=== PATIENT | female | born 1945 | race Caucasian/White ===

== ENCOUNTER 2020-10-15 11:50 | Inpatient (IN) ==
[2020-10-15] MEDS ORDERED: Isovue-370 500 ML BOTTLE IVP ONE (12:05)
[2020-10-15] MEDS ORDERED: 0.9 % Sodium Chloride 1,000 ML IVC ONE (12:10)
[2020-10-15 12:21] LABS: Hematocrit 38.1 % (35.3-44.9); Hemoglobin 11.9 g/dL (11.5-15.4); Mean Corpuscular HGB Conc 31.2 g/dL (31.6-35.5); Mean Corpuscular Hemoglobin 28.6 pg (28.0-33.3); Mean Corpuscular Volume 91.6 fL (83.0-100.0); Mean Platelet Volume 10.7 fL (9.4-12.4); Platelet Count 274 K/mcL (140-400); Red Blood Count 4.16 M/mcL (3.82-4.97); Red Cell Distribution Width 13.5 % (11.5-14.5); White Blood Count 13.7 K/mcL (4.3-11.1)
[2020-10-15 12:30] LABS: INR 2.1; Prothrombin Time 24.3 Seconds (9.4-12.1)
[2020-10-15 12:32] LABS: Activated Partial Thrombo Time 45.4 Seconds (26.0-36.0)
[2020-10-15 13:03] LABS: Calcium 9.5 mg/dL (8.6-10.3); Potassium 3.9 mEq/L (3.5-5.1); Troponin I 0.03 ng/mL (< 0.04)
[2020-10-15] MEDS ORDERED: *HR* Dextrose 50 % in Water (Vial) 50 ML VIAL ONE (13:06)
[2020-10-15] MEDS ORDERED: *HR* Dextrose 50 % in Water (Vial) 50 ML VIAL IVP ONE (13:14)
[2020-10-15] MEDS ORDERED: D10% in Water 500 ML IVC SCH (13:15)
[2020-10-15] MEDS ORDERED: D10% in Water 500 ML ONE (13:22)
[2020-10-15] MEDS ORDERED: Naloxone 0.4 MG/ML INJ IVP PRN (15:29)
[2020-10-15] MEDS ORDERED: Melatonin 3 MG TABLET PO PRN (15:35)
[2020-10-15] MEDS ORDERED: Mag Hydrox/Al Hydrox/Simeth 30 ML UDC PO PRN (15:35)
[2020-10-15] MEDS ORDERED: Ondansetron ODT 4 MG TAB.RAPDIS SL PRN (15:35)
[2020-10-15] MEDS ORDERED: D5% in 0.9% NACL 1,000 ML IVC SCH (15:45)
[2020-10-15] MEDS ORDERED: *HR* OxyCODONE/APAP 10/325 TABLET PO PRN (16:07)
[2020-10-15] MEDS ORDERED: *HR* LORazepam 1 MG TABLET PO PRN (16:07)
[2020-10-15] MEDS ORDERED: *HR* Rivaroxaban 10 MG TABLET PO SCH (17:00)
[2020-10-15] MEDS: D10% in Water 500 ML IVC SCH ×3 (17:01→23:09)
[2020-10-15] MEDS ORDERED: D5% in Water 1,000 ML IVC PRN (18:20)
[2020-10-15] MEDS ORDERED: Dextrose Gel 15 GM/37.5 ML TUBE PO PRN ×2 (18:20)
[2020-10-15] MEDS ORDERED: *HR* Dextrose 50 % in Water (Vial) 50 ML VIAL IVP PRN (18:20)
[2020-10-15] MEDS: Famotidine 20 MG TABLET PO SCH (20:23)
[2020-10-16 05:19] LABS: Hematocrit 35.2 % (35.3-44.9); Mean Corpuscular HGB Conc 31.3 g/dL (31.6-35.5); Mean Corpuscular Hemoglobin 29.1 pg (28.0-33.3); Mean Corpuscular Volume 93.1 fL (83.0-100.0); Mean Platelet Volume 11.3 fL (9.4-12.4); Platelet Count 249 K/mcL (140-400); Red Blood Count 3.78 M/mcL (3.82-4.97); Red Cell Distribution Width 13.5 % (11.5-14.5); White Blood Count 12.8 K/mcL (4.3-11.1)
[2020-10-16 05:38] LABS: Calcium 8.8 mg/dL (8.6-10.3); Potassium 4.1 mEq/L (3.5-5.1)
[2020-10-16] MEDS: Famotidine 20 MG TABLET PO SCH (07:49)
[2020-10-16] MEDS: D10% in Water 500 ML IVC SCH ×2 (08:11→15:21)
[2020-10-16] MEDS ORDERED: DilTIAZem CD (24hr) 120 MG CAP.ER.24H PO SCH (09:00)
[2020-10-16] MEDS ORDERED: *HR* Heparin 5,000 UNIT/ML VIAL IVP PRN ×3 (12:59→19:28)
[2020-10-16] MEDS ORDERED: *HR* Heparin 5,000 UNIT/ML VIAL IVP ONE (12:59)
[2020-10-16] MEDS ORDERED: Heparin 25,000UNIT/250ML 1/2NS 25,000 UNIT/250 ML IV.SOLN IVC SCH (13:00)
[2020-10-16 13:39] LABS: INR 1.3; Prothrombin Time 15.2 Seconds (9.4-12.1)
[2020-10-16 13:42] LABS: Activated Partial Thrombo Time 32.9 Seconds (26.0-36.0)
[2020-10-16] MEDS ORDERED: *HR* FentaNYL (PF) 100 MCG/2 ML VIAL ONE (16:52)
[2020-10-16] MEDS ORDERED: *HR* Propofol 200 MG/20 ML VIAL IVP ONE (16:52)
[2020-10-16] MEDS ORDERED: Ondansetron 4 MG/2 ML VIAL ONE (16:55)
[2020-10-16] MEDS ORDERED: Dexamethasone 4 MG/ML VIAL ONE (16:55)
[2020-10-16] MEDS ORDERED: Lidocaine -MPF 2% 2 ML VIAL ONE (16:55)
[2020-10-16 16:57] LABS: Adenovirus Not Detected (Not Detect); Bordetella Pertussis Not Detected (Not Detect); Chlamydophila pneumoniae Not Detected (Not Detect); Coronavirus 229E Not Detected (Not Detect); Coronavirus HKU1 Not Detected (Not Detect); Coronavirus NL63 Not Detected (Not Detect); Coronavirus OC43 Not Detected (Not Detect); Human Metapneumovirus Not Detected (Not Detect); Human Rhinovirus/Enterovirus Not Detected (Not Detect); Influenza A Subtype 2009 H1 Not Detected (Not Detect); Influenza B Not Detected (Not Detect); Mycoplasma pneumoniae Not Detected (Not Detect); Parainfluenza Virus 1 Not Detected (Not Detect); Parainfluenza Virus 2 Not Detected (Not Detect); Parainfluenza Virus 3 Not Detected (Not Detect); Parainfluenza Virus 4 Not Detected (Not Detect); Respiratory Syncytial Virus Not Detected (Not Detect); SARS-CoV-2 Not Detected (Not Detect)
[2020-10-16] MEDS ORDERED: *HR* Labetalol 20 MG/4 ML SYRINGE IVP PRN (17:00)
[2020-10-16] MEDS ORDERED: *HR* FentaNYL (PF) 100 MCG/2 ML VIAL IVP PRN (17:00)
[2020-10-16] MEDS ORDERED: Ondansetron 4 MG/2 ML VIAL IVP PRN (17:00)
[2020-10-16] MEDS ORDERED: Promethazine 6.25 MG in Water for inj. (sterile) 20 ML IVPB PRN (17:00)
[2020-10-16] MEDS ORDERED: *HR* Succinylcholine 200 MG/10 ML VIAL IVP ONE (17:05)
[2020-10-16] MEDS ORDERED: Isovue-300 50ML VIAL ONE (17:12)
[2020-10-16] MEDS ORDERED: *HR* Dextrose 50 % in Water (Vial) 50 ML VIAL IVP PRN (19:28)
[2020-10-16] MEDS ORDERED: *HR* OxyCODONE/APAP 10/325 TABLET PO PRN (19:28)
[2020-10-16] MEDS ORDERED: D5% in Water 1,000 ML IVC PRN (19:28)
[2020-10-16] MEDS ORDERED: Dextrose Gel 15 GM/37.5 ML TUBE PO PRN ×2 (19:28)
[2020-10-16] MEDS ORDERED: Mag Hydrox/Al Hydrox/Simeth 30 ML UDC PO PRN (19:28)
[2020-10-16] MEDS ORDERED: Ondansetron ODT 4 MG TAB.RAPDIS SL PRN (19:28)
[2020-10-16] MEDS ORDERED: Naloxone 0.4 MG/ML INJ IVP PRN (19:28)
[2020-10-16] MEDS ORDERED: *HR* Metoprolol 5 MG/5 ML VIAL IVP ONE (19:49)
[2020-10-16] MEDS: *HR* LORazepam 1 MG TABLET PO PRN (21:37)
[2020-10-16] MEDS: Heparin 25,000UNIT/250ML 1/2NS 25,000 UNIT/250 ML IV.SOLN IVC SCH (22:05)
[2020-10-16 23:37] LABS: Color,Urine Light-Red (Yellow)
[2020-10-16 23:38] LABS: Bilirubin,Urine Negative (Negative); Blood,Urine Large (Negative); Clarity,Urine Turbid (Clear); Glucose,Urine (UA) 50 mg/dL (Normal); Ketones,Urine Negative (Negative); Specific Gravity,Urine 1.007 (1.010-1.025)
[2020-10-16 23:39] LABS: Leukocyte Esterase,Urine Moderate (Negative); Nitrite,Urine Negative (Negative); PH,Urine 6.5 pH Units (5.0-8.0); Protein,Urine 100 mg/dL (Neg-Trace); Urobilinogen,Urine Normal (Normal)
[2020-10-16 23:42] LABS: RBC,Urine TNTC per hpf (0-3)
[2020-10-16 23:43] LABS: WBC,Urine 15-30 per hpf (0-3)
[2020-10-16 23:45] LABS: Bacteria,Urine Few per hpf (None-Few)
[2020-10-17 00:39] LABS: Sodium, Urine 63.2 mEq/L
[2020-10-17] MEDS ORDERED: Insulin DETEMIR 100 UNIT/ML X5UNITS SUBQ ONE (00:49)
[2020-10-17 04:32] LABS: Hematocrit 34.6 % (35.3-44.9); Hemoglobin 11.1 g/dL (11.5-15.4); Mean Corpuscular HGB Conc 32.1 g/dL (31.6-35.5); Mean Corpuscular Hemoglobin 29.6 pg (28.0-33.3); Mean Corpuscular Volume 92.3 fL (83.0-100.0); Mean Platelet Volume 11.5 fL (9.4-12.4); Platelet Count 236 K/mcL (140-400); Red Blood Count 3.75 M/mcL (3.82-4.97); Red Cell Distribution Width 13.3 % (11.5-14.5); White Blood Count 11.7 K/mcL (4.3-11.1)
[2020-10-17 04:53] LABS: Calcium 8.9 mg/dL (8.6-10.3); Potassium 5.1 mEq/L (3.5-5.1)
[2020-10-17] MEDS: DilTIAZem CD (24hr) 120 MG CAP.ER.24H PO SCH (07:52)
[2020-10-17] MEDS: D10% in Water 500 ML IVC SCH (07:56)
[2020-10-17] MEDS ORDERED: Famotidine 20 MG TABLET PO SCH ×2 (09:00)
[2020-10-17] MEDS: Insulin LISPRO 300 UNITS/3 ML VIAL SUBQ SCH ×3 (11:07→19:50)
[2020-10-17] MEDS ORDERED: cefTRIAXone 1,000 MG in Water for inj. (sterile) 10 ML IVP SCH (14:00)
[2020-10-17] MEDS: 0.9 % Sodium Chloride 1,000 ML IVC SCH (14:14)
[2020-10-17 16:20] LABS: Calcium 8.8 mg/dL (8.6-10.3); Potassium 4.7 mEq/L (3.5-5.1)
[2020-10-17] MEDS: Heparin 25,000UNIT/250ML 1/2NS 25,000 UNIT/250 ML IV.SOLN IVC SCH (17:53)
[2020-10-17] MEDS ORDERED: *HR* Labetalol 20 MG/4 ML SYRINGE IVP ONE (18:57)
[2020-10-17] MEDS: Melatonin 3 MG TABLET PO PRN (19:45)
[2020-10-17] MEDS: *HR* LORazepam 1 MG TABLET PO PRN (19:45)
[2020-10-18] MEDS: 0.9 % Sodium Chloride 1,000 ML IVC SCH (00:57)
[2020-10-18] MEDS ORDERED: *HR* Metoprolol 5 MG/5 ML VIAL IVP ONE ×2 (04:40→06:50)
[2020-10-18 05:31] LABS: Hematocrit 34.1 % (35.3-44.9); Hemoglobin 10.6 g/dL (11.5-15.4); Mean Corpuscular HGB Conc 31.1 g/dL (31.6-35.5); Mean Corpuscular Hemoglobin 28.6 pg (28.0-33.3); Mean Corpuscular Volume 91.9 fL (83.0-100.0); Mean Platelet Volume 11.5 fL (9.4-12.4); Platelet Count 233 K/mcL (140-400); Red Blood Count 3.71 M/mcL (3.82-4.97); Red Cell Distribution Width 13.4 % (11.5-14.5); White Blood Count 11.6 K/mcL (4.3-11.1)
[2020-10-18 05:48] LABS: Calcium 8.7 mg/dL (8.6-10.3); Potassium 4.4 mEq/L (3.5-5.1)
[2020-10-18] MEDS: *HR* Heparin 5,000 UNIT/ML VIAL IVP PRN ×2 (07:38→22:22)
[2020-10-18] MEDS: Famotidine 20 MG TABLET PO SCH (07:49)
[2020-10-18] MEDS: DilTIAZem CD (24hr) 120 MG CAP.ER.24H PO SCH (07:50)
[2020-10-18] MEDS: amLODIPine 5 MG TABLET PO SCH (07:57)
[2020-10-18] MEDS: Insulin LISPRO 300 UNITS/3 ML VIAL SUBQ SCH ×4 (12:05→19:55)
[2020-10-18] MEDS ORDERED: Perflutren Lipid Microsphere 1.3 ML in 0.9 % Sodium Chloride 8.7 ML IVP PRN (13:31)
[2020-10-18] MEDS: Heparin 25,000UNIT/250ML 1/2NS 25,000 UNIT/250 ML IV.SOLN IVC SCH (14:57)
[2020-10-19] MEDS ORDERED: *HR* Metoprolol 5 MG/5 ML VIAL IVP ONE (00:38)
[2020-10-19 01:31] LABS: Hematocrit 31.2 % (35.3-44.9); Hemoglobin 10.2 g/dL (11.5-15.4); Mean Corpuscular HGB Conc 32.7 g/dL (31.6-35.5); Mean Corpuscular Hemoglobin 30.1 pg (28.0-33.3); Mean Platelet Volume 11.4 fL (9.4-12.4); Platelet Count 219 K/mcL (140-400); Red Blood Count 3.39 M/mcL (3.82-4.97); Red Cell Distribution Width 13.8 % (11.5-14.5); White Blood Count 10.8 K/mcL (4.3-11.1)
[2020-10-19 01:51] LABS: Calcium 8.9 mg/dL (8.6-10.3); Potassium 4.5 mEq/L (3.5-5.1)
[2020-10-19] MEDS: Heparin 25,000UNIT/250ML 1/2NS 25,000 UNIT/250 ML IV.SOLN IVC SCH (08:33)
[2020-10-19] MEDS: Insulin LISPRO 300 UNITS/3 ML VIAL SUBQ SCH ×4 (08:35→21:29)
[2020-10-19] MEDS: amLODIPine 5 MG TABLET PO SCH (08:36)
[2020-10-19] MEDS: DilTIAZem CD (24hr) 120 MG CAP.ER.24H PO SCH (08:36)
[2020-10-19] MEDS: Famotidine 20 MG TABLET PO SCH (08:37)
[2020-10-19] MEDS: *HR* Heparin 5,000 UNIT/ML VIAL IVP PRN (12:53)
[2020-10-19] MEDS ORDERED: Acetaminophen 325 MG TABLET PO PRN (18:46)
[2020-10-20 01:43] LABS: Hematocrit 31.5 % (35.3-44.9); Mean Corpuscular HGB Conc 31.7 g/dL (31.6-35.5); Mean Corpuscular Hemoglobin 28.8 pg (28.0-33.3); Mean Corpuscular Volume 90.8 fL (83.0-100.0); Mean Platelet Volume 11.5 fL (9.4-12.4); Platelet Count 225 K/mcL (140-400); Red Blood Count 3.47 M/mcL (3.82-4.97); Red Cell Distribution Width 13.5 % (11.5-14.5); White Blood Count 9.7 K/mcL (4.3-11.1)
[2020-10-20 02:27] LABS: Potassium 4.4 mEq/L (3.5-5.1)
[2020-10-20] MEDS: *HR* Heparin 5,000 UNIT/ML VIAL IVP PRN ×2 (02:39→23:50)
[2020-10-20] MEDS: Heparin 25,000UNIT/250ML 1/2NS 25,000 UNIT/250 ML IV.SOLN IVC SCH ×2 (02:42→23:40)
[2020-10-20] MEDS: Famotidine 20 MG TABLET PO SCH (08:18)
[2020-10-20] MEDS: amLODIPine 5 MG TABLET PO SCH (08:18)
[2020-10-20] MEDS: Insulin LISPRO 300 UNITS/3 ML VIAL SUBQ SCH ×4 (08:19→20:48)
[2020-10-20] MEDS: DilTIAZem CD (24hr) 120 MG CAP.ER.24H PO SCH (08:19)
[2020-10-20] MEDS: *HR* LORazepam 1 MG TABLET PO PRN (20:46)
[2020-10-20] MEDS: Melatonin 3 MG TABLET PO PRN (20:46)
[2020-10-20] MEDS: Metoprolol XL (24 HR) Succ 50 MG TAB.ER.24H PO SCH (20:47)
[2020-10-20] MEDS ORDERED: Metoprolol XL (24 HR) Succ 50 MG TAB.ER.24H PO SCH (21:00)
[2020-10-21 06:18] LABS: Hemoglobin 9.9 g/dL (11.5-15.4); Mean Corpuscular HGB Conc 31.9 g/dL (31.6-35.5); Mean Corpuscular Hemoglobin 29.6 pg (28.0-33.3); Mean Corpuscular Volume 92.5 fL (83.0-100.0); Mean Platelet Volume 11.5 fL (9.4-12.4); Platelet Count 222 K/mcL (140-400); Red Blood Count 3.35 M/mcL (3.82-4.97); Red Cell Distribution Width 13.4 % (11.5-14.5); White Blood Count 8.8 K/mcL (4.3-11.1)
[2020-10-21 06:45] LABS: Calcium 9.2 mg/dL (8.6-10.3); Potassium 4.3 mEq/L (3.5-5.1)
[2020-10-21] MEDS: Famotidine 20 MG TABLET PO SCH (07:27)
[2020-10-21] MEDS: Metoprolol XL (24 HR) Succ 50 MG TAB.ER.24H PO SCH (07:28)
[2020-10-21] MEDS: *HR* Heparin 5,000 UNIT/ML VIAL IVP PRN (07:28)
[2020-10-21] MEDS: amLODIPine 5 MG TABLET PO SCH (07:28)
[2020-10-21] MEDS: Insulin LISPRO 300 UNITS/3 ML VIAL SUBQ SCH (07:29)
[2020-10-21] MEDS ORDERED: Apixaban 5 MG TABLET PO SCH (09:45)
== END 2020-10-21 11:33 | disposition home or self-care (01) | DRG 659 ==
LOC: EMEROOARM 11:50 → 3BNU 11:50 → SUATTDRO 14:59 → 3BNU 15:05
PROVIDERS: ADMIT Family Medicine; ATTEND Family Medicine

== ENCOUNTER 2020-11-07 13:55 | Observation (INO) ==
[2020-11-07 14:31] LABS: Hematocrit 33.4 % (35.3-44.9); Hemoglobin 10.6 g/dL (11.5-15.4); Mean Corpuscular HGB Conc 31.7 g/dL (31.6-35.5); Mean Corpuscular Hemoglobin 29.1 pg (28.0-33.3); Mean Corpuscular Volume 91.8 fL (83.0-100.0); Mean Platelet Volume 12.3 fL (9.4-12.4); Platelet Count 167 K/mcL (140-400); Red Blood Count 3.64 M/mcL (3.82-4.97); Red Cell Distribution Width 13.7 % (11.5-14.5); White Blood Count 13.7 K/mcL (4.3-11.1)
[2020-11-07 14:58] LABS: Albumin 3.2 g/dL (3.5-5.7); Albumin/Globulin Ratio 0.9 (1.1-2.2); Bilirubin,Total 0.9 mg/dL (0.3-1.0); Calcium 8.5 mg/dL (8.6-10.3); Globulin 3.4 g/dL (2.4-3.5); Potassium 4.6 mEq/L (3.5-5.1); Total Protein 6.6 g/dL (6.4-8.9); Troponin I 0.03 ng/mL (< 0.04)
[2020-11-07 14:59] LABS: Lymphocytes # 0.6 K/mcL (0.6-4.6); Monocytes # 0.7 K/mcL (0.0-1.3); Neutrophils # 12.5 K/mcL (1.6-8.9); Platelet Estimate Normal (Normal)
[2020-11-07 14:59] LABS: Amorphous Sediment,Urine Few per hpf (None-Few); Bacteria,Urine Few per hpf (None-Few); Bilirubin,Urine Negative (Negative); Blood,Urine Moderate (Negative); Clarity,Urine Turbid (Clear); Color,Urine Yellow (Yellow); Glucose,Urine (UA) >=1000 mg/dL (Normal); Ketones,Urine Negative (Negative); Leukocyte Esterase,Urine Negative (Negative); Mucus,Urine Few per lpf (None-Few); Nitrite,Urine Negative (Negative); PH,Urine 5.5 pH Units (5.0-8.0); Protein,Urine 100 mg/dL (Neg-Trace); RBC,Urine 50-100 per hpf (0-3); Specific Gravity,Urine 1.023 (1.010-1.025); Squamous Epithelial Cell,Urine Few per hpf (None-Few); Urobilinogen,Urine Normal (Normal); WBC,Urine 15-30 per hpf (0-3)
[2020-11-07 15:01] LABS: Toxic Granulation Present (Not Present)
[2020-11-07] MEDS ORDERED: cefTRIAXone 1,000 MG in Water for inj. (sterile) 10 ML IVP ONE ×2 (15:26→17:43)
[2020-11-07] MEDS ORDERED: Melatonin 3 MG TABLET PO PRN (16:02)
[2020-11-07] MEDS ORDERED: Naloxone 0.4 MG/ML INJ IVP PRN (16:02)
[2020-11-07] MEDS ORDERED: D5% in Water 1,000 ML IVC PRN (16:06)
[2020-11-07] MEDS ORDERED: *HR* Dextrose 50 % in Water (Vial) 50 ML VIAL IVP PRN (16:06)
[2020-11-07] MEDS ORDERED: 0.9 % Sodium Chloride 1,000 ML IVC ONE (16:06)
[2020-11-07] MEDS ORDERED: Dextrose Gel 15 GM/37.5 ML TUBE PO PRN ×2 (16:06)
[2020-11-07] MEDS ORDERED: Insulin Human Regular 10 UNIT in 0.9 % Sodium Chloride 10 ML IV ONE (16:13)
[2020-11-07] MEDS ORDERED: *HR* OxyCODONE/APAP 10/325 TABLET PO PRN (17:08)
[2020-11-07] MEDS ORDERED: Ondansetron ODT 4 MG TAB.RAPDIS SL PRN (17:10)
[2020-11-07] MEDS ORDERED: Insulin LISPRO 300 UNITS/3 ML VIAL SUBQ SCH (18:00)
[2020-11-07] MEDS: Famotidine 20 MG TABLET PO SCH (19:32)
[2020-11-07] MEDS: Apixaban 5 MG TABLET PO SCH (19:32)
[2020-11-07] MEDS: Pregabalin 50 MG CAPSULE PO SCH (19:32)
[2020-11-08] MEDS: Insulin LISPRO 300 UNITS/3 ML VIAL SUBQ SCH ×3 (07:27→16:49)
[2020-11-08] MEDS: cefTRIAXone 2,000 MG in Water for inj. (sterile) 20 ML IVP SCH (08:47)
[2020-11-08] MEDS: 0.9 % Sodium Chloride 1,000 ML IVC SCH ×2 (08:47→16:51)
[2020-11-08] MEDS: Apixaban 5 MG TABLET PO SCH ×2 (08:48→20:41)
[2020-11-08] MEDS: Pregabalin 50 MG CAPSULE PO SCH ×2 (08:48→20:41)
[2020-11-08] MEDS: amLODIPine 5 MG TABLET PO SCH (08:48)
[2020-11-08 08:51] LABS: Basophils # 0.1 K/mcL (0.0-0.2); Basophils % 0.4 %; Eosinophils # 0.1 K/mcL (0.0-0.6); Eosinophils % 0.7 %; Hematocrit 34.9 % (35.3-44.9); Hemoglobin 10.9 g/dL (11.5-15.4); Immature Granulocytes % 0.5 % (0-4); Lymphocytes # 1.3 K/mcL (0.6-4.6); Lymphocytes % 10.9 %; Mean Corpuscular HGB Conc 31.2 g/dL (31.6-35.5); Mean Corpuscular Hemoglobin 28.5 pg (28.0-33.3); Mean Corpuscular Volume 91.4 fL (83.0-100.0); Mean Platelet Volume 12.2 fL (9.4-12.4); Monocytes # 1.4 K/mcL (0.0-1.3); Monocytes % 12.2 %; Neutrophils # 8.8 K/mcL (1.6-8.9); Platelet Count 165 K/mcL (140-400); Red Blood Count 3.82 M/mcL (3.82-4.97); Red Cell Distribution Width 13.9 % (11.5-14.5); Segmented Neutrophils % 75.3 %; White Blood Count 11.7 K/mcL (4.3-11.1)
[2020-11-08] MEDS ORDERED: POTASSIUM GLUCONATE 99 MG PO SCH (09:00)
[2020-11-08 09:07] LABS: Calcium 8.9 mg/dL (8.6-10.3)
[2020-11-08 09:22] LABS: Platelet Estimate Normal (Normal)
[2020-11-08] MEDS ORDERED: *HR* LORazepam 1 MG TABLET PO PRN (12:43)
[2020-11-08] MEDS: Famotidine 20 MG TABLET PO SCH (20:40)
[2020-11-09 03:31] LABS: Basophils # 0.1 K/mcL (0.0-0.2); Basophils % 0.5 %; Eosinophils # 0.1 K/mcL (0.0-0.6); Eosinophils % 1.1 %; Hematocrit 31.4 % (35.3-44.9); Hemoglobin 9.6 g/dL (11.5-15.4); Immature Granulocytes % 0.4 % (0-4); Lymphocytes # 1.3 K/mcL (0.6-4.6); Lymphocytes % 13.2 %; Mean Corpuscular HGB Conc 30.6 g/dL (31.6-35.5); Mean Corpuscular Hemoglobin 28.4 pg (28.0-33.3); Mean Corpuscular Volume 92.9 fL (83.0-100.0); Mean Platelet Volume 12.5 fL (9.4-12.4); Monocytes # 1.5 K/mcL (0.0-1.3); Monocytes % 16.2 %; Neutrophils # 6.5 K/mcL (1.6-8.9); Platelet Count 150 K/mcL (140-400); Red Blood Count 3.38 M/mcL (3.82-4.97); Red Cell Distribution Width 13.7 % (11.5-14.5); Segmented Neutrophils % 68.6 %; White Blood Count 9.5 K/mcL (4.3-11.1)
[2020-11-09 03:50] LABS: Calcium 8.5 mg/dL (8.6-10.3); Potassium 4.2 mEq/L (3.5-5.1)
[2020-11-09] MEDS: 0.9 % Sodium Chloride 1,000 ML IVC SCH (03:54)
[2020-11-09 03:58] LABS: Platelet Estimate Normal (Normal)
[2020-11-09 07:52] VITALS: BP 127/81
[2020-11-09] MEDS: Insulin LISPRO 300 UNITS/3 ML VIAL SUBQ SCH ×2 (08:04→11:15)
[2020-11-09] MEDS: Apixaban 5 MG TABLET PO SCH (08:49)
[2020-11-09] MEDS: cefTRIAXone 2,000 MG in Water for inj. (sterile) 20 ML IVP SCH (08:49)
[2020-11-09] MEDS: Pregabalin 50 MG CAPSULE PO SCH (08:50)
[2020-11-09] MEDS: amLODIPine 5 MG TABLET PO SCH (08:50)
== END 2020-11-09 12:28 | disposition home or self-care (01) ==
LOC: EMEROOARM 13:55 → 3BNU 13:55
PROVIDERS: ADMIT Internal Medicine; ATTEND Internal Medicine